=== PATIENT | female | born 1930 | race Caucasian/White ===

== ENCOUNTER 2017-06-15 16:04 | Inpatient (IN) | payer MEDICARE ==
[~2017-06-15] VITALS: Ht 160 cm; Wt 69.6 kg
[2017-06-15 16:22] VITALS: BP 158/98; PULSE 79; RESP 18; TEMP 98; O2SAT 96
[2017-06-15 20:20] VITALS: RESP 16; O2SAT 98
[2017-06-15 20:27] VITALS: BP 169/72; PULSE 80; RESP 18; O2SAT 99
--- NOTE | 2017-06-15 20:51 | PD ---
HPI Chief Complaint: Medical Clearance Time Seen by Provider: 20:45 Travel History International Travel<30 days: No Contact w/Intl Traveler<30days: No Traveled to known affect area: No History of Present Illness HPI The patient is an 87-year-old female who presents to the emergency department for "yeast infection". The patient is in the room with her sister and granddaughter who provided collateral information. They report that the patient has not been taking care of appropriately by the patient's brother. They report that the patient has not been bathed or taken care of for an unknown amount of time. The patient was brought to the emergency department by EMS from a hotel room, unknown bystanders called EMS. The granddaughter reports that the yeast infection has been there for at least 6 months and has not had any treatment. They also report that her psoriasis has had no treatment. The patient has not been to a physician for years. The patient also complains of chronic psoriasis on her lower back and scalp. They report that the patient is homeless and has nowhere to go upon discharge. The patient is oriented. The patient denies any other complaints, dysuria, hematuria, fevers, problems breathing, chest pain. Modifying Factors: None Associated Signs & Symptoms: Yeast infection, homeless, social issues Risk Factors: Elderly PFSH Past Medical History Arthritis: Yes Asthma: No Autoimmune Disease: No Heart Rhythm Problems: No High Cholesterol: Yes Chest Pain: Yes COPD: No Cerebrovascular Accident: Yes Diabetes: Yes Patient Takes Glucophage: No Diminished Hearing: No GERD: Yes Glaucoma: No Headaches: No Hepatitis: No Hiatal Hernia: No Hypertension: Yes Kidney Stones: No Immunizations Current: Yes Myocardial Infarction: No Renal Failure: No Seizures: No Sleep Apnea: No Thyroid Disease: No Ulcer: No Past Surgical History Abdominal Surgery: Yes AICD: No Cholecystectomy: Yes Gynecologic Surgery: Yes Hysterectomy: Yes Pacemaker: No Social History Alcohol Use: No Tobacco Use: Yes (2 PPD) Substance Use: No Allergies-Medications (Allergen,Severity, Reaction): Coded Allergies: No Known Allergies (Verified Allergy, Severe, 06/15/17) Reported Meds & Prescriptions Reported Meds & Active Scripts Active No Active Prescriptions or Reported Medications Review of Systems Except as stated in HPI: all other systems reviewed are Neg General / Constitutional: No: Fever, Chills HENT: No: Headaches Cardiovascular: No: Chest Pain or Discomfort Respiratory: No: Cough, Shortness of Breath Gastrointestinal: No: Nausea, Vomiting Genitourinary: No: Urgency, Hematuria Skin: Positive Rash, Positive Itching, Positive Dryness Neurologic: No: Weakness Physical Exam Narrative GENERAL: A thin and frail elderly woman in no acute respiratory distress. Awake , alert. SKIN: Warm and dry. Dry flaky skin noted on her scalp, lower back, and upper buttocks. HEAD: Normocephalic. EYES: No scleral icterus. No injection or drainage. NECK: Supple, trachea midline. No JVD or lymphadenopathy. CARDIOVASCULAR: Regular rate and rhythm without murmurs, gallops, or rubs. RESPIRATORY: Breath sounds equal bilaterally. No accessory muscle use. GASTROINTESTINAL: Abdomen soft, non-tender, nondistended. GENITOURINARY: Normal external genitalia with scaling and erythema of the genital area and the area around her diapers. Vaginal vault without blood but notable for whitish greenish drainage. EXTREMITIES: No cyanosis, or edema. NEUROLOGICAL: Awake, alert, and oriented x 3. Non-focal. Data Data Last Documented VS Vital Signs Date Time Temp Pulse Resp B/P (MAP) Pulse Ox O2 Delivery O2 Flow Rate FiO2 06/15/17 20:27 80 18 169/72 (104) 99 06/15/17 16:22 98.0 Orders Orders Complete Blood Count With Diff (06/15/17 20:57) Comprehensive Metabolic Panel (06/15/17 20:57) Urinalysis - C+S If Indicated (06/15/17 20:57) Ecg Monitoring (06/15/17 20:57) Iv Access Insert/Monitor (06/15/17 20:57) Oximetry (06/15/17 20:57) Sodium Chloride 0.9% Flush (Ns Flush) (06/15/17 21:00) Wet Prep Profile (06/15/17 20:57) Gc And Chlamydia Pcr (06/15/17 22:06) Urine Culture (06/15/17 21:35) Lactic Acid Sepsis Protocol (06/15/17 22:19) Blood Culture (06/15/17 22:19) Piperacil-Tazo 4.5 Gm Premix (Zosyn 4.5 (06/15/17 22:19) Sodium Chlor 0.9% 1000 Ml Inj (Ns 1000 M (06/15/17 22:19) Admit Order (Ed Use Only) (06/15/17 22:49) Labs Laboratory Tests Test 06/15/17 21:29 06/15/17 21:35 06/15/17 22:39 White Blood Count 11.2 TH/MM3 Red Blood Count 4.00 MIL/MM3 Hemoglobin 12.6 GM/DL Hematocrit 37.0 % Mean Corpuscular Volume 92.4 FL Mean Corpuscular Hemoglobin 31.5 PG Mean Corpuscular Hemoglobin Concent 34.0 % Red Cell Distribution Width 16.2 % Platelet Count 239 TH/MM3 Mean Platelet Volume 8.9 FL Neutrophils (%) (Auto) 80.9 % Lymphocytes (%) (Auto) 15.2 % Monocytes (%) (Auto) 3.2 % Eosinophils (%) (Auto) 0.3 % Basophils (%) (Auto) 0.4 % Neutrophils # (Auto) 9.1 TH/MM3 Lymphocytes # (Auto) 1.7 TH/MM3 Monocytes # (Auto) 0.4 TH/MM3 Eosinophils # (Auto) 0.0 TH/MM3 Basophils # (Auto) 0.0 TH/MM3 CBC Comment DIFF FINAL Differential Comment Blood Urea Nitrogen 17 MG/DL Creatinine 0.88 MG/DL Random Glucose 132 MG/DL Total Protein 6.9 GM/DL Albumin 3.0 GM/DL Calcium Level 8.4 MG/DL Alkaline Phosphatase 90 U/L Aspartate Amino Transf (AST/SGOT) 7 U/L Alanine Aminotransferase (ALT/SGPT) 9 U/L Total Bilirubin 0.4 MG/DL Sodium Level 138 MEQ/L Potassium Level 3.3 MEQ/L Chloride Level 101 MEQ/L Carbon Dioxide Level 30.6 MEQ/L Anion Gap 6 MEQ/L Estimat Glomerular Filtration Rate 61 ML/MIN Urine Color YELLOW Urine Turbidity HAZY Urine pH 5.5 Urine Specific [place] 1.029 Urine Protein 30 mg/dL Urine Glucose (UA) TRACE mg/dL Urine Ketones NEG mg/dL Urine Occult Blood NEG Urine Nitrite NEG Urine Bilirubin SMALL Urine Urobilinogen 2.0 MG/DL Urine Leukocyte Esterase LARGE Urine WBC 66 /hpf Urine Squamous Epithelial Cells 12 /hpf Urine Hyaline Casts 9 /lpf Urine Mucus FEW /lpf Microscopic Urinalysis Comment CULTURE INDICATED MDM Medical Decision Making Medical Screen Exam Complete: Yes Emergency Medical Condition: Yes Medical Record Reviewed: Yes Interpretation(s) Laboratory Tests Test 06/15/17 21:29 06/15/17 21:35 06/15/17 22:39 White Blood Count 11.2 TH/MM3 (4.0-11.0) Neutrophils (%) (Auto) 80.9 % (16.0-70.0) Neutrophils # (Auto) 9.1 TH/MM3 (1.8-7.7) Random Glucose 132 MG/DL (74-106) Albumin 3.0 GM/DL (3.4-5.0) Calcium Level 8.4 MG/DL (8.5-10.1) Aspartate Amino Transf (AST/SGOT) 7 U/L (15-37) Alanine Aminotransferase (ALT/SGPT) 9 U/L (10-53) Potassium Level 3.3 MEQ/L (3.5-5.1) Estimat Glomerular Filtration Rate 61 ML/MIN (>89) Urine Turbidity HAZY (CLEAR) Urine Protein 30 mg/dL (NEG-TRACE) Urine Bilirubin SMALL (NEG) Urine Leukocyte Esterase LARGE (NEG) Urine WBC 66 /hpf (0-5) Urine Mucus FEW /lpf (OCC) Differential Diagnosis UTI versus sepsis versus dehydration versus metabolic issues Narrative Course Patient exam shows significant skin rash on the diaper area, concerning for fungal infection. UA is significant for UTI. At this point, IV antibiotics were given. She was changed into a dry diaper. Lab work did not show significant metabolic issues or dehydration. She has no focal neurological deficits at this time which are new. My plan would be to admit her for further treatment and for social work to evaluate her regarding living situation as well. Case is discussed with Dr. Viveros for admission. Diagnosis Primary Impression: UTI (urinary tract infection) Additional Impressions: Rash of genital area Social problem Admitting Information Admitting Physician Requests: Admit Scripts No Active Prescriptions or Reported Meds Jose Jacome MD Jun 15, 2017 20:51
[2017-06-15] MEDS ORDERED: SODIUM CHLORIDE 0.9% FLUSH 10 ML FLUSH IVF PRN (21:00)
[2017-06-15 21:55] LABS: AUTOMATED NEUTROPHIL # 9.1 TH/MM3 (1.8-7.7); BASOPHIL % 0.4 % (0.0-2.0); EOSINOPHIL % 0.3 % (0.0-4.0); HEMOGLOBIN 12.6 GM/DL (11.6-15.3); LYMPH % 15.2 % (9.0-44.0); LYMPHOCYTE # 1.7 TH/MM3 (1.0-4.8); MEAN CELL VOLUME 92.4 FL (80.0-100.0); MEAN CORPUSCULAR HEMOGLOBIN 31.5 PG (27.0-34.0); MEAN PLATELET VOLUME 8.9 FL (7.0-11.0); MONO % 3.2 % (0.0-8.0); MONOCYTE # 0.4 TH/MM3 (0-0.9); NEUT % 80.9 % (16.0-70.0); PLATELET COUNT 239 TH/MM3 (150-450); RED CELL DISTRIBUTION WIDTH 16.2 % (11.6-17.2); WHITE BLOOD COUNT 11.2 TH/MM3 (4.0-11.0)
[2017-06-15 22:05] LABS: AST (GOT) 7 U/L (15-37); BICARBONATE 30.6 MEQ/L (21.0-32.0); BLOOD UREA NITROGEN 17 MG/DL (7-18); CALCIUM 8.4 MG/DL (8.5-10.1); CHLORIDE 101 MEQ/L (98-107); CREATININE 0.88 MG/DL (0.50-1.00); GLOMERULAR FILTRATION RATE 61 ML/MIN (>89); GLUCOSE,RANDOM 132 MG/DL (74-106); SODIUM (NA) 138 MEQ/L (136-145)
[2017-06-15 22:08] LABS: ALKALINE PHOSPHATASE 90 U/L (45-117); ALT (GPT) 9 U/L (10-53); TOTAL BILIRUBIN ADULT 0.4 MG/DL (0.2-1.0); TOTAL PROTEIN 6.9 GM/DL (6.4-8.2)
[2017-06-15 22:11] LABS: BILIRUBIN, URINE SMALL (NEG); BLOOD, URINE NEG (NEG); GLUCOSE,URINE TRACE mg/dL (NEG); HYALINE CAST, URINE 9 /lpf (RARE); KETONE, URINE NEG (NEG); MUCUS URINE FEW /lpf (OCC); NITRITE,URINE NEG (NEG); PH, URINE 5.5 (5.0-8.5); SQUAMOUS EPITHELIAL CELL URINE 12 /hpf (0-5); URINE COLOR YELLOW (YELLW/STRAW); URINE LEUKOCYTE ESTERASE LARGE (NEG)
[2017-06-15] MEDS ORDERED: SODIUM CHLOR 0.9% 1000 ML INJ 1,000 ML IV ONE (22:19)
[2017-06-15] MEDS ORDERED: PIPERACIL-TAZO 4.5 GM PREMIX 100 ML IV STA (22:19)
--- NOTE | 2017-06-15 22:56 | HHI.HP ---
HPI Service [facility] Primary Care Physician Unknown Admission Diagnosis UTI/social issues/groin fungal infection Diagnoses: (1) UTI (urinary tract infection) Diagnosis: Principal (2) Fungal infection of the groin Diagnosis: Principal (3) Dehydration Diagnosis: Principal (4) Total self-care deficit Diagnosis: Principal Travel History International Travel<30 Days: No Contact w/Intl Traveler <30 Da: No Traveled to Known Affected Are: No History of Present Illness This is an 87-year-old female with a PMH of HTN, Hyperlipidemia and Tobacco Abuse who is brought the ER by EMS secondary to groin rash. Pt poor historian, unable to provide much history. Per report, EMS found pt living w/ friend in a nearby hotel, previously living w/ Son, however apparently Son abandoned her and has been living w/ friend, however now unable to live there any longer and is homeless. Pt unable to care for self. On arrival, BP 158/98, HR 79, O2 sat 96% on RA, Afebrile. WBC 11.2. Chemistry essentially unremarkable except for GFR 61. Lactic Acid normal at 1.2. UA positive for UTI. S/p Zosyn in ER. Review of Systems Except as stated in HPI: all other systems reviewed are Neg ROS: 14 point review of systems otherwise negative. Past Family Social History Past Medical History PMH: HTN, Hyperlipidemia and Tobacco Abuse Past Surgical History PAST SURGICAL HISTORY: Cholecystectomy, Hysterectomy Allergies: Coded Allergies: No Known Allergies (Verified Allergy, Severe, 06/15/17) Family History PAST FAMILY HISTORY: Reviewed. No h/o DM or CAD Social History PAST SOCIAL HISTORY: Negative for alcohol or drugs. Positive for tobacco. Physical Exam Vital Signs Vital Signs Date Time Temp Pulse Resp B/P (MAP) Pulse Ox O2 Delivery O2 Flow Rate FiO2 06/15/17 20:27 80 18 169/72 (104) 99 06/15/17 20:20 16 98 Room Air 06/15/17 16:22 98.0 79 18 158/98 (118) 96 Physical Exam PE: GENERAL: Pleasant elderly white female in no acute distress, mildly confused, concerned about her cat. HEENT: PERRLA, EOMI. No scleral icterus or conjunctival pallor. No lid lag or facial droop. CARDIOVASCULAR: Regular rate and rhythm. No obvious murmurs to auscultation. No chest tenderness to palpation. RESPIRATORY: No obvious rhonchi or wheezing. Clear to auscultation. Breath sounds equal bilaterally. GASTROINTESTINAL: Abdomen soft, non-tender, nondistended. BS normal. MUSCULOSKELETAL: Extremities without clubbing, cyanosis, or edema. No obvious deformities. Groin w/ area of excoriation bilaterally NEUROLOGICAL: Awake, alert and oriented x4. No focal neurologic deficits. Moving both upper and lower extremities spontaneously. Laboratory Laboratory Tests Test 06/15/17 21:29 06/15/17 21:35 06/15/17 22:39 White Blood Count 11.2 Red Blood Count 4.00 Hemoglobin 12.6 Hematocrit 37.0 Mean Corpuscular Volume 92.4 Mean Corpuscular Hemoglobin 31.5 Mean Corpuscular Hemoglobin Concent 34.0 Red Cell Distribution Width 16.2 Platelet Count 239 Mean Platelet Volume 8.9 Neutrophils (%) (Auto) 80.9 Lymphocytes (%) (Auto) 15.2 Monocytes (%) (Auto) 3.2 Eosinophils (%) (Auto) 0.3 Basophils (%) (Auto) 0.4 Neutrophils # (Auto) 9.1 Lymphocytes # (Auto) 1.7 Monocytes # (Auto) 0.4 Eosinophils # (Auto) 0.0 Basophils # (Auto) 0.0 CBC Comment DIFF FINAL Differential Comment Blood Urea Nitrogen 17 Creatinine 0.88 Random Glucose 132 Total Protein 6.9 Albumin 3.0 Calcium Level 8.4 Alkaline Phosphatase 90 Aspartate Amino Transf (AST/SGOT) 7 Alanine Aminotransferase (ALT/SGPT) 9 Total Bilirubin 0.4 Sodium Level 138 Potassium Level 3.3 Chloride Level 101 Carbon Dioxide Level 30.6 Anion Gap 6 Estimat Glomerular Filtration Rate 61 Urine Color YELLOW Urine Turbidity HAZY Urine pH 5.5 Urine Specific [place] 1.029 Urine Protein 30 Urine Glucose (UA) TRACE Urine Ketones NEG Urine Occult Blood NEG Urine Nitrite NEG Urine Bilirubin SMALL Urine Urobilinogen 2.0 Urine Leukocyte Esterase LARGE Urine WBC 66 Urine Squamous Epithelial Cells 12 Urine Hyaline Casts 9 Urine Mucus FEW Microscopic Urinalysis Comment CULTURE INDICATED Date/Time Source Procedure Growth Status 06/15/17 21:35 Urine Clean Catch Urine Culture Pending Received Result Diagram: 06/15/17212806/15/172128 Caprini VTE Risk Assessment Caprini VTE Risk Assessment: No/Low Risk (score <= 1) Caprini Risk Assessment Model Point Value = 1 Point Value = 2 Point Value = 3 Point Value = 5 Age 41-60 Minor surgery BMI > 25 kg/m2 Swollen legs Varicose veins or History of unexplained or recurrent spontaneous Oral contraceptives or hormone replacement Sepsis (< 1 month) Serious lung disease, including pneumonia (< 1 month) Abnormal pulmonary function Acute myocardial infarction Congestive heart failure (< 1 month) History of inflammatory bowel disease Medical patient at bed rest Age 61-74 Arthroscopic surgery Major open surgery (> 45 min) Laparoscopic surgery (> 45 min) Malignancy Confined to bed (> 72 hours) Immobilizing plaster cast Central venous access Age >= 75 History of VTE Family history of VTE Factor V Leiden Prothrombin [id number] Lupus anticoagulant Anticardiolipin antibodies Elevated serum homocysteine Heparin-induced thrombocytopenia Other congenital or acquired thrombophilia Stroke (< 1 month) Elective arthroplasty Hip, pelvis, or leg fracture Acute spinal cord injury (< 1 month) Prophylaxis Regimen Total Risk Factor Score Risk Level Prophylaxis Regimen 0-1 Low Early ambulation 2 Moderate Order ONE of the following: *Sequential Compression Device (SCD) *Heparin 5000 units SQ BID 3-4 Higher Order ONE of the following medications: *Heparin 5000 units SQ TID *Enoxaparin/Lovenox 40 mg SQ daily (WT < 150 kg, CrCl > 30 mL/min) *Enoxaparin/Lovenox 30 mg SQ daily (WT < 150 kg, CrCl > 10-29 mL/min) *Enoxaparin/Lovenox 30 mg SQ BID (WT < 150 kg, CrCl > 30 mL/min) AND/OR *Sequential Compression Device (SCD) 5 or more Highest Order ONE of the following medications: *Heparin 5000 units SQ TID (Preferred with Epidurals) *Enoxaparin/Lovenox 40 mg SQ daily (WT < 150 kg, CrCl > 30 mL/min) *Enoxaparin/Lovenox 30 mg SQ daily (WT < 150 kg, CrCl > 10-29 mL/min) *Enoxaparin/Lovenox 30 mg SQ BID (WT < 150 kg, CrCl > 30 mL/min) AND *Sequential Compression Device (SCD) Assessment and Plan Problem List: (1) Fungal infection of the groin ICD Code: B35.6 - Tinea cruris (2) UTI (urinary tract infection) ICD Code: N39.0 - Urinary tract infection, site not specified Status: Acute (3) Dehydration ICD Code: E86.0 - Dehydration (4) Total self-care deficit ICD Code: R41.89 - Other symptoms and signs involving cognitive functions and awareness Assessment and Plan A/P: 1. UTI: U/a w/ UTI, s/p Zosyn in ER. Follow up cultures, continue w/ Rocephin IV, IVF for hydration. 2. Dehydration: Likely secondary to UTI, GFR 61. IVF for hydration, repeat labs in am. 3. Fungal Infection Groin: area of excoriation bilaterally, Nystatin cream, Wound Consult for further evaluation as needed. 4. Total Self Care Deficit: pt abandoned by Son per report, living w/ friend however now homeless. Unable to care for self. Consult Case Management for assistance w/ placement. PT for eval/tx 5. DVT Prophylaxis: SCD/teds. 6. Social work for DC planning as needed. 7. Case discussed at length with ER physician, lab/records/imaging reviewed by me. Ave Ventura MD Jun 15, 2017 22:56
[2017-06-15 23:00] VITALS: BP 162/72; PULSE 78; RESP 18; O2SAT 98
[2017-06-15] MEDS ORDERED: ACETAMINOPHEN 325 MG TAB PO PRN (23:00)
[2017-06-15] MEDS ORDERED: MAGNESIUM HYDROXIDE SUSP 30 ML CUP PO PRN (23:00)
[2017-06-15] MEDS ORDERED: ONDANSETRON HCL 4 MG/2 ML VIAL IVP PRN (23:00)
[2017-06-15] MEDS ORDERED: LACTULOSE SYRUP 20 GM/30 ML CUP PO PRN (23:00)
[2017-06-15] MEDS ORDERED: SODIUM CHLORIDE 0.9% FLUSH 10 ML FLUSH IV FLUSH PRN (23:00)
[2017-06-15] MEDS ORDERED: BISACODYL 10 MG SUPP RECTAL PRN (23:00)
[2017-06-15] MEDS ORDERED: SENNOSIDES 8.6 MG TAB PO PRN (23:00)
[2017-06-16] MEDS: NYSTATIN 100,000 UNIT/GM CREAM 15 GM TOPICAL SCH ×4 (00:52→18:00)
[2017-06-16] MEDS: SODIUM CHLOR 0.9% 1000 ML INJ 1,000 ML IV SCH ×3 (00:54→17:20)
[2017-06-16] MEDS ORDERED: ZOLPIDEM TARTRATE 5 MG TAB PO ONE ×2 (01:00→23:30)
[2017-06-16 03:18] VITALS: BP 100/49; PULSE 75; RESP 18; TEMP 99.1; O2SAT 97
[2017-06-16 07:07] LABS: AUTOMATED NEUTROPHIL # 7.4 TH/MM3 (1.8-7.7); BASOPHIL # 0.1 TH/MM3 (0-0.2); BASOPHIL % 0.5 % (0.0-2.0); EOSINOPHIL # 0.1 TH/MM3 (0-0.4); EOSINOPHIL % 1.1 % (0.0-4.0); HEMATOCRIT 34.9 % (35.0-46.0); LYMPH % 20.4 % (9.0-44.0); LYMPHOCYTE # 2.1 TH/MM3 (1.0-4.8); MEAN CELL VOLUME 93.3 FL (80.0-100.0); MEAN CORPUSCULAR HEMOGLOBIN 32.1 PG (27.0-34.0); MEAN CORPUSCULAR HGB CONC 34.4 % (32.0-36.0); MEAN PLATELET VOLUME 8.1 FL (7.0-11.0); MONO % 4.8 % (0.0-8.0); MONOCYTE # 0.5 TH/MM3 (0-0.9); NEUT % 73.2 % (16.0-70.0); PLATELET COUNT 228 TH/MM3 (150-450); RED BLOOD COUNT 3.74 MIL/MM3 (4.00-5.30); RED CELL DISTRIBUTION WIDTH 16.1 % (11.6-17.2); WHITE BLOOD COUNT 10.2 TH/MM3 (4.0-11.0)
[2017-06-16 07:46] LABS: ALBUMIN 2.4 GM/DL (3.4-5.0); ALKALINE PHOSPHATASE 83 U/L (45-117); ALT (GPT) 8 U/L (10-53); AST (GOT) 11 U/L (15-37); BICARBONATE 26.1 MEQ/L (21.0-32.0); BLOOD UREA NITROGEN 12 MG/DL (7-18); CALCIUM 7.8 MG/DL (8.5-10.1); CHLORIDE 105 MEQ/L (98-107); CREATININE 0.71 MG/DL (0.50-1.00); GLOMERULAR FILTRATION RATE 78 ML/MIN (>89); GLUCOSE,RANDOM 83 MG/DL (74-106); SODIUM (NA) 139 MEQ/L (136-145); TOTAL BILIRUBIN ADULT 0.6 MG/DL (0.2-1.0); TOTAL PROTEIN 5.9 GM/DL (6.4-8.2)
[2017-06-16 08:53] VITALS: BP 128/61; PULSE 67; RESP 16; TEMP 98.4; O2SAT 96
[2017-06-16] MEDS: SODIUM CHLORIDE 0.9% FLUSH 10 ML FLUSH IV FLUSH SCH ×2 (09:00→21:00)
[2017-06-16] MEDS ORDERED: DOCUSATE SODIUM 50 MG/SENNA 8.6 MG TAB PO SCH (09:00)
[2017-06-16] MEDS: cefTRIAXone INJ 1,000 MG in SODIUM CHLORIDE 0.9% INJ 100 ML IV SCH (10:21)
[2017-06-16 11:30] VITALS: BP 125/63; PULSE 70; RESP 16; TEMP 97.8; O2SAT 97
--- NOTE | 2017-06-16 12:52 | HHI.PR ---
Subjective Remarks Follow-up UTI. Patient denies UTI symptoms. States she has Crohn's disease and usually has 3-4 loose nonbloody and nonmucoid stools per day. She also has psoriasis involving her scalp and back. No joint pains. Discussed with nursing Objective Vitals Vital Signs Date Time Temp Pulse Resp B/P (MAP) Pulse Ox O2 Delivery O2 Flow Rate FiO2 06/16/17 11:30 97.8 70 16 125/63 (83) 97 06/16/17 08:53 98.4 67 16 128/61 (83) 96 06/16/17 03:18 99.1 75 18 100/49 (66) 97 06/15/17 23:45 06/15/17 23:00 78 18 162/72 (102) 98 Room Air 06/15/17 20:27 80 18 169/72 (104) 99 06/15/17 20:20 16 98 Room Air 06/15/17 16:22 98.0 79 18 158/98 (118) 96 I/O 06/15/17 06/15/17 06/15/17 06/16/17 06/16/17 06/16/17 06:59 14:59 22:59 06:59 14:59 22:59 Intake Total 100 ml Balance 100 ml Intake IV Total 100 ml Result Diagram: 06/16/1762906/16/17629 Objective Remarks GENERAL: Pleasant elderly white female in no acute distress, well-developed and well-nourished Skin: Psoriatic plaques in the back HEENT: PERRLA, EOMI. No scleral icterus or conjunctival pallor. No lid lag or facial droop. CARDIOVASCULAR: Regular rate and rhythm. No obvious murmurs to auscultation. No chest tenderness to palpation. RESPIRATORY: No obvious rhonchi or wheezing. Clear to auscultation. Breath sounds equal bilaterally. GASTROINTESTINAL: Abdomen soft, non-tender, nondistended. BS normal. MUSCULOSKELETAL: Extremities without clubbing, cyanosis, or edema. No obvious deformities. Groin w/ area of excoriation bilaterally NEUROLOGICAL: Awake, alert and oriented x4. No focal neurologic deficits. Moving both upper and lower extremities spontaneously. Procedures none A/P Problem List: (1) Fungal infection of the groin ICD Code: B35.6 - Tinea cruris (2) UTI (urinary tract infection) ICD Code: N39.0 - Urinary tract infection, site not specified Status: Acute (3) Dehydration ICD Code: E86.0 - Dehydration (4) Total self-care deficit ICD Code: R41.89 - Other symptoms and signs involving cognitive functions and awareness Assessment and Plan 1. Gram-negative marbin UTI: U/a w/ UTI, s/p Zosyn in ER. Follow up cultures, continue w/ Rocephin IV, IVF for hydration. 2. Dehydration: Likely secondary to UTI, GFR 61. IVF for hydration, repeat labs in am. 3. Fungal Infection Groin: area of excoriation bilaterally, Nystatin cream, Wound Consult for further evaluation as needed. 4. Crohn's and psoriasis. Continue to monitor for dehydration. Lac-Hydrin. 5. Total Self Care Deficit: pt abandoned by Son per report, living w/ friend however now homeless. Unable to care for self. Consult Case Management for assistance w/ placement. PT for eval/tx DVT prophylaxis with SCD and subcu heparin Discharge Planning Will need placement Waylon Beavers MD Jun 16, 2017 12:52
[2017-06-16 16:22] VITALS: BP 150/67; PULSE 84; RESP 18; TEMP 97.8; O2SAT 98
[2017-06-16] MEDS: LACTIC ACID (AMMONIUM LACTATE) 12% LOTION 225 GM BTL TOPICAL SCH (17:20)
[2017-06-16] MEDS ORDERED: POTASSIUM CHLORIDE 10 MEQ CONTROLLED RELEASE TAB PO ONE (17:30)
[2017-06-16 20:37] VITALS: BP 151/67; PULSE 85; RESP 18; TEMP 98.5; O2SAT 97
[2017-06-17] VITALS (11 sets, daily range): BP systolic 105–199; BP diastolic 58–83; PULSE 70–84; RESP 18–20; TEMP 97.9–98.5; O2SAT 96–98
[2017-06-17] MEDS: HEPARIN SODIUM - SQ 10,000 UNITS/ML VIAL SQ SCH ×3 (00:05→20:37)
[2017-06-17] MEDS: LACTIC ACID (AMMONIUM LACTATE) 12% LOTION 225 GM BTL TOPICAL SCH ×3 (00:05→20:39)
[2017-06-17] MEDS: NYSTATIN 100,000 UNIT/GM CREAM 15 GM TOPICAL SCH ×5 (00:05→22:48)
--- NOTE | 2017-06-17 07:09 | HHI.PR ---
Subjective Remarks Follow-up UTI. Patient has no new complaints. Discussed with PT, patient recommended to be discharged to rehab Objective Vitals Vital Signs Date Time Temp Pulse Resp B/P (MAP) Pulse Ox O2 Delivery O2 Flow Rate FiO2 06/17/17 05:41 98.5 79 18 136/60 (85) 97 06/17/17 03:38 140/70 (93) 06/17/17 03:19 83 18 123/58 (79) 98 06/17/17 03:17 82 18 105/59 (74) 98 06/17/17 01:19 98.0 77 18 180/79 (112) 98 06/16/17 20:37 98.5 85 18 151/67 (95) 97 06/16/17 16:22 97.8 84 18 150/67 (94) 98 06/16/17 11:30 97.8 70 16 125/63 (83) 97 06/16/17 08:53 98.4 67 16 128/61 (83) 96 I/O 06/16/17 06/16/17 06/16/17 06/17/17 06/17/17 06/17/17 07:00 15:00 23:00 07:00 15:00 23:00 Intake Total 100 ml 900 ml 1500 ml Balance 100 ml 900 ml 1500 ml Intake Oral 500 ml 500 ml IV Total 100 ml 400 ml 1000 ml # Voids 5 2 # Bowel Movements 3 Result Diagram: 06/16/1762906/16/1730 Objective Remarks GENERAL: Pleasant elderly white female in no acute distress, well-developed and well-nourished Skin: Psoriatic plaques in the back CARDIOVASCULAR: Regular rate and rhythm. No obvious murmurs to auscultation. No chest tenderness to palpation. RESPIRATORY: No obvious rhonchi or wheezing. Clear to auscultation. Breath sounds equal bilaterally. GASTROINTESTINAL: Abdomen soft, non-tender, nondistended. BS normal. MUSCULOSKELETAL: Extremities without clubbing, cyanosis, or edema. No obvious deformities. Groin w/ area of excoriation bilaterally NEUROLOGICAL: Awake, alert and oriented x4. No focal neurologic deficits. Moving both upper and lower extremities spontaneously. Procedures none A/P Problem List: (1) Fungal infection of the groin ICD Code: B35.6 - Tinea cruris (2) UTI (urinary tract infection) ICD Code: N39.0 - Urinary tract infection, site not specified Status: Acute (3) Dehydration ICD Code: E86.0 - Dehydration (4) Total self-care deficit ICD Code: R41.89 - Other symptoms and signs involving cognitive functions and awareness Assessment and Plan 1. E. coli UTI. Switch to Ceftin for a total of 3 day treatment. Blood cultures negative 2. Dehydration: Likely secondary to UTI, GFR 61. IVF for hydration, improved 3. Fungal Infection Groin: area of excoriation bilaterally, Nystatin cream, Wound Consult for further evaluation as needed. 4. Encephalopathy likely metabolic. Improved 5. Crohn's and psoriasis. Continue to monitor for dehydration. Lac-Hydrin. 6. Total Self Care Deficit: pt abandoned by Son per report, living w/ friend however now homeless. Unable to care for self. Consult Case Management for assistance w/ placement. PT ff DVT prophylaxis with SCD and subcu heparin Discharge Planning Discharge to rehab when arranged. Admitted on June 16, 2017 Waylon Beavers MD Jun 17, 2017 07:09
[2017-06-17 07:55] LABS: BICARBONATE 27.2 MEQ/L (21.0-32.0); CALCIUM 7.8 MG/DL (8.5-10.1); CREATININE 0.68 MG/DL (0.50-1.00); MAGNESIUM 1.6 MG/DL (1.5-2.5)
[2017-06-17] MEDS: cefTRIAXone INJ 1,000 MG in SODIUM CHLORIDE 0.9% INJ 100 ML IV SCH (11:39)
[2017-06-17] MEDS: SODIUM CHLORIDE 0.9% FLUSH 10 ML FLUSH IV FLUSH SCH ×2 (11:41→20:37)
[2017-06-17] MEDS: ACETAMINOPHEN/HYDROcodone 325 MG/10 MG TAB PO PRN (20:36)
[2017-06-17] MEDS ORDERED: ENALAPRILAT 2.5 MG/2 ML VIAL IV PUSH ONE (22:15)
[2017-06-17] MEDS ORDERED: ZOLPIDEM TARTRATE 5 MG TAB PO ONE (22:15)
[2017-06-18] VITALS (8 sets, daily range): BP systolic 146–187; BP diastolic 62–77; PULSE 72–82; RESP 16–18; TEMP 97.5–98.8; O2SAT 96–99
[2017-06-18] MEDS: NYSTATIN 100,000 UNIT/GM CREAM 15 GM TOPICAL SCH ×4 (05:32→21:23)
[2017-06-18] MEDS: SODIUM CHLORIDE 0.9% FLUSH 10 ML FLUSH IV FLUSH SCH ×2 (08:45→21:23)
[2017-06-18] MEDS: CEFUROXIME AXETIL 250 MG TAB PO SCH ×2 (08:45→23:45)
[2017-06-18] MEDS: HEPARIN SODIUM - SQ 10,000 UNITS/ML VIAL SQ SCH ×2 (08:45→21:20)
[2017-06-18] MEDS: LACTIC ACID (AMMONIUM LACTATE) 12% LOTION 225 GM BTL TOPICAL SCH ×2 (08:46→21:23)
--- NOTE | 2017-06-18 09:36 | HHI.PR ---
Subjective Remarks Patient in nad. She is in the chair. Denies any fever or chills. Follow with urination. Nausea vomiting diarrhea constipation. She is asking for sleeping. She is not able to sleep at night Objective Vitals Vital Signs Date Time Temp Pulse Resp B/P (MAP) Pulse Ox O2 Delivery O2 Flow Rate FiO2 06/18/17 05:32 157/62 (93) 06/18/17 04:09 98.8 74 18 99 06/18/17 00:29 98.8 72 18 98 06/18/17 00:17 152/62 (92) 06/17/17 22:23 154/70 (98) 06/17/17 20:13 97.9 84 18 199/83 (121) 96 06/17/17 15:40 97.9 80 18 128/62 (84) 96 06/17/17 12:07 98.2 70 20 130/62 (84) 98 I/O 06/17/17 06/17/17 06/17/17 06/18/17 06/18/17 06/18/17 07:00 15:00 23:00 07:00 15:00 23:00 Intake Total 1500 ml 800 ml Balance 1500 ml 800 ml Intake Oral 500 ml 800 ml IV Total 1000 ml # Voids 2 3 # Bowel Movements 1 Result Diagram: 06/16/17 0630 06/17/17 0510 Objective Remarks GENERAL: Pleasant elderly white female in no acute distress, well-developed and well-nourished Skin: Psoriatic plaques in the back CARDIOVASCULAR: Regular rate and rhythm. No obvious murmurs to auscultation. No chest tenderness to palpation. RESPIRATORY: No obvious rhonchi or wheezing. Clear to auscultation. Breath sounds equal bilaterally. GASTROINTESTINAL: Abdomen soft, non-tender, nondistended. BS normal. MUSCULOSKELETAL: Extremities without clubbing, cyanosis, or edema. No obvious deformities. Groin w/ area of excoriation bilaterally NEUROLOGICAL: Awake, alert and oriented x4. No focal neurologic deficits. Moving both upper and lower extremities spontaneously. Procedures none A/P Problem List: (1) Fungal infection of the groin ICD Code: B35.6 - Tinea cruris (2) UTI (urinary tract infection) ICD Code: N39.0 - Urinary tract infection, site not specified Status: Acute (3) Dehydration ICD Code: E86.0 - Dehydration (4) Total self-care deficit ICD Code: R41.89 - Other symptoms and signs involving cognitive functions and awareness Assessment and Plan 1. E. coli UTI. Switch to Ceftin for a total of 3 day treatment. Blood cultures negative 2. Dehydration: Likely secondary to UTI, GFR 61. IVF for hydration, improved 3. Fungal Infection Groin: area of excoriation bilaterally, Nystatin cream, Wound Consult for further evaluation as needed. 4. Encephalopathy likely metabolic. Improved 5. Crohn's and psoriasis. Continue to monitor for dehydration. Lac-Hydrin. 6. Total Self Care Deficit: pt abandoned by Son per report, living w/ friend however now homeless. Unable to care for self. Consult Case Management for assistance w/ placement. PT ff DVT prophylaxis with SCD and subcu heparin Discharge Planning Discharge to rehab when arranged. Admitted on June 16, 2017 [facility] is also involved Melissa Bailey MD Jun 18, 2017 09:36
--- NOTE | 2017-06-18 09:36 | HHI.DS ---
Discharge Summary Admission Date Jun 15, 2017 at 22:51 Discharge Date: Jun 18, 2017 Admitting Diagnosis UTI/social issues/groin fungal infection (1) Fungal infection of the groin ICD Code: B35.6 - Tinea cruris (2) UTI (urinary tract infection) ICD Code: N39.0 - Urinary tract infection, site not specified Status: Acute (3) Dehydration ICD Code: E86.0 - Dehydration (4) Total self-care deficit ICD Code: R41.89 - Other symptoms and signs involving cognitive functions and awareness Procedures none Brief History - From Admission This is an 87-year-old female with a PMH of HTN, Hyperlipidemia and Tobacco Abuse who is brought the ER by EMS secondary to groin rash. Pt poor historian, unable to provide much history. Per report, EMS found pt living w/ friend in a nearby hotel, previously living w/ Son, however apparently Son abandoned her and has been living w/ friend, however now unable to live there any longer and is homeless. Pt unable to care for self. On arrival, BP 158/98, HR 79, O2 sat 96% on RA, Afebrile. WBC 11.2. Chemistry essentially unremarkable except for GFR 61. Lactic Acid normal at 1.2. UA positive for UTI. S/p Zosyn in ER. CBC/BMP: 06/16/17 0630 06/17/17 0510 Significant Findings Laboratory Tests Test 06/15/17 21:29 06/15/17 21:35 06/15/17 22:39 06/15/17 22:55 White Blood Count 11.2 TH/MM3 (4.0-11.0) Neutrophils (%) (Auto) 80.9 % (16.0-70.0) Neutrophils # (Auto) 9.1 TH/MM3 (1.8-7.7) Random Glucose 132 MG/DL (74-106) Albumin 3.0 GM/DL (3.4-5.0) Calcium Level 8.4 MG/DL (8.5-10.1) Aspartate Amino Transf (AST/SGOT) 7 U/L (15-37) Alanine Aminotransferase (ALT/SGPT) 9 U/L (10-53) Potassium Level 3.3 MEQ/L (3.5-5.1) Estimat Glomerular Filtration Rate 61 ML/MIN (>89) Urine Turbidity HAZY (CLEAR) Urine Protein 30 mg/dL (NEG-TRACE) Urine Bilirubin SMALL (NEG) Urine Leukocyte Esterase LARGE (NEG) Urine WBC 66 /hpf (0-5) Urine Mucus FEW /lpf (OCC) Test 06/16/17 06:30 06/17/17 05:10 Red Blood Count 3.74 MIL/MM3 (4.00-5.30) Hematocrit 34.9 % (35.0-46.0) Neutrophils (%) (Auto) 73.2 % (16.0-70.0) Total Protein 5.9 GM/DL (6.4-8.2) Albumin 2.4 GM/DL (3.4-5.0) Calcium Level 7.8 MG/DL (8.5-10.1) 7.8 MG/DL (8.5-10.1) Aspartate Amino Transf (AST/SGOT) 11 U/L (15-37) Alanine Aminotransferase (ALT/SGPT) 8 U/L (10-53) Potassium Level 3.0 MEQ/L (3.5-5.1) Estimat Glomerular Filtration Rate 78 ML/MIN (>89) 82 ML/MIN (>89) Random Glucose 176 MG/DL (74-106) PE at Discharge GENERAL: Pleasant elderly white female in no acute distress, well-developed and well-nourished Skin: Psoriatic plaques in the back CARDIOVASCULAR: Regular rate and rhythm. No obvious murmurs to auscultation. No chest tenderness to palpation. RESPIRATORY: No obvious rhonchi or wheezing. Clear to auscultation. Breath sounds equal bilaterally. GASTROINTESTINAL: Abdomen soft, non-tender, nondistended. BS normal. MUSCULOSKELETAL: Extremities without clubbing, cyanosis, or edema. No obvious deformities. Groin w/ area of excoriation bilaterally NEUROLOGICAL: Awake, alert and oriented x4. No focal neurologic deficits. Moving both upper and lower extremities spontaneously. Hospital Course 1. E. coli UTI. Switch to Ceftin for a total of 3 day treatment. Blood cultures negative 2. Dehydration: Likely secondary to UTI, GFR 61. IVF for hydration, improved 3. Fungal Infection Groin: area of excoriation bilaterally, Nystatin cream, Wound Consult for further evaluation as needed. 4. Encephalopathy likely metabolic. Improved 5. Crohn's and psoriasis. Continue to monitor for dehydration. Lac-Hydrin. 6. Total Self Care Deficit: pt abandoned by Son per report, living w/ friend however now homeless. Unable to care for self. Consult Case Management for assistance w/ placement. PT ff DVT prophylaxis with SCD and subcu heparin Discharge Planning Discharge to rehab when arranged. Admitted on June 16, 2017 DSF is also involved Melissa Bailey MD Jun 18, 2017 09:36
[2017-06-18] MEDS ORDERED: NYST15T TOPICAL (09:37)
[2017-06-18] MEDS ORDERED: CEFU1TAB18 PO (09:37)
--- NOTE | 2017-06-18 09:37 | HHI.DCPOC ---
Discharge Care Plan Diagnosis: (1) Total self-care deficit (2) UTI (urinary tract infection) (3) Fungal infection of the groin Goals to Promote Your Health * To prevent worsening of your condition and complications * To maintain your health at the optimal level Directions to Meet Your Goals Take your medications as prescribed Follow your dietary instruction Follow activity as directed Keep your appointments as scheduled Take your immunizations and boosters as scheduled If your symptoms worsen call your PCP, if no PCP go to Urgent Care Center or Emergency Room Smoking is Dangerous to Your Health. Avoid second hand smoke Call the 24-hour hour crisis hotline for domestic abuse at Nazanin Benedict PA-C Jun 18, 2017 9:37 am
[2017-06-18] MEDS ORDERED: ENALAPRILAT 1.25 MG/ML VIAL IV PUSH PRN (12:30)
[2017-06-18] MEDS: TEMAZEPAM 15 MG CAP PO PRN (21:21)
[2017-06-19] VITALS (7 sets, daily range): BP systolic 115–189; BP diastolic 57–84; PULSE 63–88; RESP 16–18; TEMP 97.8–98.8; O2SAT 93–98
[2017-06-19] MEDS: NYSTATIN 100,000 UNIT/GM CREAM 15 GM TOPICAL SCH ×4 (05:35→21:13)
[2017-06-19] MEDS: LACTIC ACID (AMMONIUM LACTATE) 12% LOTION 225 GM BTL TOPICAL SCH ×2 (09:43→21:13)
[2017-06-19] MEDS: HEPARIN SODIUM - SQ 10,000 UNITS/ML VIAL SQ SCH ×2 (09:44→21:13)
--- NOTE | 2017-06-19 12:00 | HHI.PR ---
Subjective Remarks Did sleep better. No n/v/d/c. No fever ro chills./ No events overnight Objective Vitals Vital Signs Date Time Temp Pulse Resp B/P (MAP) Pulse Ox O2 Delivery O2 Flow Rate FiO2 06/19/17 07:31 98.0 64 16 127/60 (82) 97 06/19/17 05:02 98.0 71 18 120/57 (78) 97 06/19/17 00:47 98.8 88 18 189/82 (117) 97 06/19/17 00:00 98.4 84 18 165/84 (111) 93 06/18/17 15:36 98.0 78 16 167/71 (103) 98 06/18/17 12:20 171/68 (102) I/O 06/18/17 06/18/17 06/18/17 06/19/17 06/19/17 06/19/17 07:00 15:00 23:00 07:00 15:00 23:00 Intake Total 950 ml Output Total 650 ml 400 ml Balance 300 ml -400 ml Intake Oral 950 ml Output Urine Total 650 ml 400 ml # Voids 3 Result Diagram: 06/16/17 0630 06/17/17 0510 Objective Remarks GENERAL: Pleasant elderly white female in no acute distress, well-developed and well-nourished Skin: Psoriatic plaques in the back CARDIOVASCULAR: Regular rate and rhythm. No obvious murmurs to auscultation. No chest tenderness to palpation. RESPIRATORY: No obvious rhonchi or wheezing. Clear to auscultation. Breath sounds equal bilaterally. GASTROINTESTINAL: Abdomen soft, non-tender, nondistended. BS normal. MUSCULOSKELETAL: Extremities without clubbing, cyanosis, or edema. No obvious deformities. Groin w/ area of excoriation bilaterally NEUROLOGICAL: Awake, alert and oriented x4. No focal neurologic deficits. Moving both upper and lower extremities spontaneously. Procedures none A/P Problem List: (1) Fungal infection of the groin ICD Code: B35.6 - Tinea cruris (2) UTI (urinary tract infection) ICD Code: N39.0 - Urinary tract infection, site not specified Status: Acute (3) Dehydration ICD Code: E86.0 - Dehydration (4) Total self-care deficit ICD Code: R41.89 - Other symptoms and signs involving cognitive functions and awareness Assessment and Plan 1. E. coli UTI. Switch to Ceftin for a total of 3 day treatment. Blood cultures negative 2. Dehydration: Likely secondary to UTI, GFR 61. IVF for hydration, improved 3. Fungal Infection Groin: area of excoriation bilaterally, Nystatin cream, Wound Consult for further evaluation as needed. 4. Encephalopathy likely metabolic. Improved 5. Crohn's and psoriasis. Continue to monitor for dehydration. Lac-Hydrin. 6. Total Self Care Deficit: pt abandoned by Son per report, living w/ friend however now homeless. Unable to care for self. Consult Case Management for assistance w/ placement. PT ff DVT prophylaxis with SCD and subcu heparin Discharge Planning Discharge to rehab when arranged. Admitted on June 16, 2017 DSF is also involved Melissa Bailey MD Jun 19, 2017 12:00
[2017-06-19] MEDS: SODIUM CHLORIDE 0.9% FLUSH 10 ML FLUSH IV FLUSH SCH ×2 (17:25→21:00)
[2017-06-19] MEDS: TEMAZEPAM 15 MG CAP PO PRN (21:13)
[2017-06-20 00:13] VITALS: BP 124/64; PULSE 76; RESP 18; TEMP 97.9; O2SAT 98
[2017-06-20 03:38] VITALS: BP 139/69; PULSE 68; RESP 18; TEMP 97.8; O2SAT 95
[2017-06-20] MEDS: NYSTATIN 100,000 UNIT/GM CREAM 15 GM TOPICAL SCH ×3 (05:16→18:41)
[2017-06-20 08:20] VITALS: BP 167/67; PULSE 74; RESP 16; TEMP 98.3; O2SAT 95
--- NOTE | 2017-06-20 08:37 | HHI.PR ---
Subjective Remarks Pleasant, does not appear in no acute distress. No events overnight. No complaints at this time Objective Vitals Vital Signs Date Time Temp Pulse Resp B/P (MAP) Pulse Ox O2 Delivery O2 Flow Rate FiO2 06/20/17 03:38 97.8 68 18 139/69 (92) 95 06/20/17 00:13 97.9 76 18 124/64 (84) 98 06/19/17 19:32 98.2 78 18 136/83 (100) 97 06/19/17 14:56 97.8 78 16 115/57 (76) 98 06/19/17 13:15 98.3 63 16 125/59 (81) 95 I/O 06/19/17 06/19/17 06/19/17 06/20/17 06/20/17 06/20/17 07:00 15:00 23:00 07:00 15:00 23:00 Intake Total 250 ml 200 ml Output Total 400 ml 200 ml Balance -400 ml 50 ml 200 ml Intake Oral 250 ml 200 ml Output Urine Total 400 ml 200 ml # Voids 3 Result Diagram: 06/16/17 0630 06/17/17 0510 Objective Remarks GENERAL: Pleasant elderly white female in no acute distress, well-developed and well-nourished Skin: Psoriatic plaques in the back CARDIOVASCULAR: Regular rate and rhythm. No obvious murmurs to auscultation. No chest tenderness to palpation. RESPIRATORY: No obvious rhonchi or wheezing. Clear to auscultation. Breath sounds equal bilaterally. GASTROINTESTINAL: Abdomen soft, non-tender, nondistended. BS normal. MUSCULOSKELETAL: Extremities without clubbing, cyanosis, or edema. No obvious deformities. Groin w/ area of excoriation bilaterally NEUROLOGICAL: Awake, alert and oriented x4. No focal neurologic deficits. Moving both upper and lower extremities spontaneously. Procedures none A/P Problem List: (1) Fungal infection of the groin ICD Code: B35.6 - Tinea cruris (2) UTI (urinary tract infection) ICD Code: N39.0 - Urinary tract infection, site not specified Status: Acute (3) Dehydration ICD Code: E86.0 - Dehydration (4) Total self-care deficit ICD Code: R41.89 - Other symptoms and signs involving cognitive functions and awareness Assessment and Plan 1. E. coli UTI. Switch to Ceftin for a total of 3 day treatment. Blood cultures negative 2. Dehydration: Likely secondary to UTI, GFR 61. IVF for hydration, improved 3. Fungal Infection Groin: area of excoriation bilaterally, Nystatin cream, Wound Consult for further evaluation as needed. 4. Encephalopathy likely metabolic. Improved 5. Crohn's and psoriasis. Continue to monitor for dehydration. Lac-Hydrin. 6. Total Self Care Deficit: pt abandoned by Son per report, living w/ friend however now homeless. Unable to care for self. Consult Case Management for assistance w/ placement. PT ff DVT prophylaxis with SCD and subcu heparin Discharge Planning Discharge to rehab when arranged. Admitted on June 16, 2017 DSF is also involved CM ff Melissa Segovia MD Jun 20, 2017 08:37
[2017-06-20] MEDS: SODIUM CHLORIDE 0.9% FLUSH 10 ML FLUSH IV FLUSH SCH ×2 (09:54→21:06)
[2017-06-20] MEDS: HEPARIN SODIUM - SQ 10,000 UNITS/ML VIAL SQ SCH ×2 (09:54→21:06)
[2017-06-20] MEDS: LACTIC ACID (AMMONIUM LACTATE) 12% LOTION 225 GM BTL TOPICAL SCH ×2 (09:54→21:06)
[2017-06-20 12:23] VITALS: BP 142/70; PULSE 70; RESP 16; TEMP 97.3; O2SAT 96
[2017-06-20 16:20] VITALS: BP 137/63; PULSE 73; RESP 16; TEMP 98.3; O2SAT 98
[2017-06-20 20:43] VITALS: BP 140/63; PULSE 71; RESP 18; TEMP 97.9; O2SAT 97
[2017-06-20] MEDS: TEMAZEPAM 15 MG CAP PO PRN (21:05)
[2017-06-21 00:22] VITALS: BP 140/63; PULSE 70; RESP 18; TEMP 97.9; O2SAT 96
[2017-06-21] MEDS: NYSTATIN 100,000 UNIT/GM CREAM 15 GM TOPICAL SCH ×5 (00:25→23:19)
[2017-06-21] MEDS: SODIUM CHLORIDE 0.9% FLUSH 10 ML FLUSH IV FLUSH SCH ×2 (08:18→21:41)
[2017-06-21] MEDS: LACTIC ACID (AMMONIUM LACTATE) 12% LOTION 225 GM BTL TOPICAL SCH ×2 (08:19→21:41)
[2017-06-21] MEDS: HEPARIN SODIUM - SQ 10,000 UNITS/ML VIAL SQ SCH ×2 (08:19→21:43)
[2017-06-21 08:36] VITALS: BP 138/63; PULSE 70; RESP 20; TEMP 97.7; O2SAT 95
[2017-06-21 11:27] VITALS: BP 142/65; PULSE 75; RESP 12; TEMP 98; O2SAT 94
[2017-06-21 15:03] VITALS: BP 116/54; PULSE 70; RESP 16; TEMP 98.3; O2SAT 97
--- NOTE | 2017-06-21 16:21 | HHI.PR ---
Subjective Remarks The patient is in bed she appears in not acute distress. Since sleeping medication was not helping last night and she was not able to sleep. No chest pain or shortness of breath. No nausea vomiting diarrhea or constipation. Objective Vitals Vital Signs Date Time Temp Pulse Resp B/P (MAP) Pulse Ox O2 Delivery O2 Flow Rate FiO2 06/21/17 15:03 98.3 70 16 116/54 (74) 97 06/21/17 11:27 98.0 75 12 142/65 (90) 94 06/21/17 08:36 97.7 70 20 138/63 (88) 95 06/21/17 00:22 97.9 70 18 140/63 (88) 96 06/20/17 20:43 97.9 71 18 140/63 (88) 97 06/20/17 16:20 98.3 73 16 137/63 (87) 98 I/O 06/20/17 06/20/17 06/20/17 06/21/17 06/21/17 06/21/17 07:00 15:00 23:00 07:00 15:00 23:00 Intake Total 200 ml 480 ml Balance 200 ml 480 ml Intake Oral 200 ml 480 ml # Voids 2 # Bowel Movements 1 Result Diagram: 06/17/17 0510 Objective Remarks GENERAL: Pleasant elderly white female in no acute distress, well-developed and well-nourished Skin: Psoriatic plaques in the back CARDIOVASCULAR: Regular rate and rhythm. No obvious murmurs to auscultation. No chest tenderness to palpation. RESPIRATORY: No obvious rhonchi or wheezing. Clear to auscultation. Breath sounds equal bilaterally. GASTROINTESTINAL: Abdomen soft, non-tender, nondistended. BS normal. MUSCULOSKELETAL: Extremities without clubbing, cyanosis, or edema. No obvious deformities. Groin w/ area of excoriation bilaterally NEUROLOGICAL: Awake, alert and oriented x4. No focal neurologic deficits. Moving both upper and lower extremities spontaneously. Procedures none A/P Problem List: (1) Fungal infection of the groin ICD Code: B35.6 - Tinea cruris (2) UTI (urinary tract infection) ICD Code: N39.0 - Urinary tract infection, site not specified Status: Acute (3) Dehydration ICD Code: E86.0 - Dehydration (4) Total self-care deficit ICD Code: R41.89 - Other symptoms and signs involving cognitive functions and awareness Assessment and Plan 06/21/17 1. E. coli UTI. Switch to Ceftin for a total of 3 day treatment. Treated. Blood cultures negative 2. Dehydration: Likely secondary to UTI, GFR 61. IVF for hydration, improved 3. Fungal Infection Groin: area of excoriation bilaterally, Nystatin cream, Wound Consult for further evaluation as needed. 4. Encephalopathy likely metabolic. Improved 5. Crohn's and psoriasis. Continue to monitor for dehydration. Lac-Hydrin. 6. Total Self Care Deficit: pt abandoned by Son per report, living w/ friend however now homeless. Unable to care for self. Consult Case Management for assistance w/ placement. PT ff DVT prophylaxis with SCD and subcu heparin Discharge Planning Discharge to rehab when arranged. Admitted on June 16, 2017 DSF is also involved Melissa Bailey MD Jun 21, 2017 16:21
[2017-06-21 20:46] VITALS: BP 178/74; PULSE 80; RESP 18; TEMP 98.3; O2SAT 95
[2017-06-21] MEDS: TEMAZEPAM 15 MG CAP PO PRN (21:41)
[2017-06-22] MEDS: NYSTATIN 100,000 UNIT/GM CREAM 15 GM TOPICAL SCH ×3 (05:00→17:50)
[2017-06-22 08:25] VITALS: BP 141/65; PULSE 69; RESP 20; TEMP 98; O2SAT 97
[2017-06-22] MEDS: SODIUM CHLORIDE 0.9% FLUSH 10 ML FLUSH IV FLUSH SCH ×2 (08:29→21:55)
[2017-06-22] MEDS: HEPARIN SODIUM - SQ 10,000 UNITS/ML VIAL SQ SCH ×2 (08:29→21:55)
[2017-06-22] MEDS: LACTIC ACID (AMMONIUM LACTATE) 12% LOTION 225 GM BTL TOPICAL SCH ×2 (08:29→21:55)
[2017-06-22 10:50] VITALS: BP 161/67; PULSE 72; RESP 16; TEMP 98; O2SAT 97
--- NOTE | 2017-06-22 12:05 | HHI.PR ---
Subjective Remarks Follow-up visit urinary tract infection, dehydration, Crohn's and psoriasis. Patient seen and examined today sitting in a chair. Reports she is doing well. Denies any complaints. Requesting to go home or to rehab. Objective Vitals Vital Signs Date Time Temp Pulse Resp B/P (MAP) Pulse Ox O2 Delivery O2 Flow Rate FiO2 06/22/17 10:50 98.0 72 16 161/67 (98) 97 06/22/17 08:25 98.0 69 20 141/65 (90) 97 06/21/17 20:46 98.3 80 18 178/74 (108) 95 06/21/17 15:03 98.3 70 16 116/54 (74) 97 I/O 06/21/17 06/21/17 06/21/17 06/22/17 06/22/17 06/22/17 07:00 15:00 23:00 07:00 15:00 23:00 Intake Total 480 ml 720 ml Balance 480 ml 720 ml Intake Oral 480 ml 720 ml # Voids 2 2 2 # Bowel Movements 1 1 Objective Remarks GENERAL: This is a well-nourished, well-developed patient, in no apparent distress. SKIN: Warm and dry HEENT: Normocephalic. Pupils equal round and reactive. Nose without bleeding. Airway patent. NECK: Trachea midline. CARDIOVASCULAR: Regular rate and rhythm without murmurs, gallops, or rubs. RESPIRATORY: Clear to auscultation. Breath sounds equal bilaterally. No wheezes , rales, or rhonchi. GASTROINTESTINAL: Abdomen soft, non-tender, nondistended. Bowel Sounds normoactive x4. MUSCULOSKELETAL: Extremities without clubbing, cyanosis, or edema. NEUROLOGICAL: Awake and alert. Oriented to place, person. No focal neuro deficit. Moves all extremities. Normal speech. Procedures none A/P Problem List: (1) Fungal infection of the groin ICD Code: B35.6 - Tinea cruris (2) UTI (urinary tract infection) ICD Code: N39.0 - Urinary tract infection, site not specified Status: Acute (3) Dehydration ICD Code: E86.0 - Dehydration (4) Total self-care deficit ICD Code: R41.89 - Other symptoms and signs involving cognitive functions and awareness Assessment and Plan 87-year-old female with a PMH of HTN, Hyperlipidemia and Tobacco Abuse who is brought the ER by EMS secondary to groin rash. Urinary tract infection -Received Zosyn in the ED, completed Rocephin IV -Resolved Dehydration -IV fluids for hydration -Improved now eating better [place] infection to groin -Nystatin cream -Wound consult Total self-care deficit -Abandoned by son as per report, living with a friend and now homeless. Unable to care for self. -Case management involvement for assistance in placement. -PT for evaluation and treatment DVT prop SCDs, early ambulation Discharge Planning Plan to discharge to a facility when available. Parveen Braxton Jun 22, 2017 12:05
[2017-06-22 15:27] VITALS: BP 141/62; PULSE 72; RESP 16; TEMP 98; O2SAT 97
[2017-06-22 21:13] VITALS: BP 158/67; PULSE 70; RESP 18; TEMP 98.5; O2SAT 96
[2017-06-22] MEDS: ACETAMINOPHEN/HYDROcodone 325 MG/5 MG TAB PO PRN (21:55)
[2017-06-22] MEDS: TEMAZEPAM 15 MG CAP PO PRN (21:55)
[2017-06-23] VITALS (7 sets, daily range): BP systolic 124–148; BP diastolic 59–86; PULSE 61–85; RESP 17–19; TEMP 97.9–99; O2SAT 95–99
[2017-06-23] MEDS: NYSTATIN 100,000 UNIT/GM CREAM 15 GM TOPICAL SCH ×5 (00:02→22:49)
[2017-06-23] MEDS: HEPARIN SODIUM - SQ 10,000 UNITS/ML VIAL SQ SCH ×2 (09:07→22:48)
[2017-06-23] MEDS: SODIUM CHLORIDE 0.9% FLUSH 10 ML FLUSH IV FLUSH SCH ×2 (09:08→21:00)
--- NOTE | 2017-06-23 09:55 | HHI.PR ---
Subjective Remarks Follow-up visit urinary tract infection, dehydration, Crohn's and psoriasis. Patient seen and examined today. Reports she is doing well. Denies pain and discomfort. Denies SOB/ dyspnea. Denies chest pain, palpitations, headaches, dizziness. Denies fevers, chills, n/v/d. Denies hematuria, dysuria. Reports insomnia. Objective Vitals Vital Signs Date Time Temp Pulse Resp B/P (MAP) Pulse Ox O2 Delivery O2 Flow Rate FiO2 06/23/17 08:00 98.1 63 19 138/70 (92) 95 06/23/17 04:07 99.0 85 18 140/86 (104) 97 06/23/17 00:06 98.9 70 18 124/59 (80) 96 06/22/17 21:13 98.5 70 18 158/67 (97) 96 06/22/17 15:27 98.0 72 16 141/62 (88) 97 06/22/17 10:50 98.0 72 16 161/67 (98) 97 I/O 06/22/17 06/22/17 06/22/17 06/23/17 06/23/17 06/23/17 07:00 15:00 23:00 07:00 15:00 23:00 Intake Total 720 ml Balance 720 ml Intake Oral 720 ml # Voids 2 2 # Bowel Movements 1 Objective Remarks GENERAL: This is a well-nourished, well-developed patient, in no apparent distress. SKIN: Warm and dry HEENT: Normocephalic. Pupils equal round and reactive. Nose without bleeding. Airway patent. NECK: Trachea midline. CARDIOVASCULAR: Regular rate and rhythm without murmurs, gallops, or rubs. RESPIRATORY: Clear to auscultation. Breath sounds equal bilaterally. No wheezes , rales, or rhonchi. GASTROINTESTINAL: Abdomen soft, non-tender, nondistended. Bowel Sounds normoactive x4. MUSCULOSKELETAL: Extremities without clubbing, cyanosis, or edema. NEUROLOGICAL: Awake and alert. Oriented to place, person. No focal neuro deficit. Moves all extremities. Normal speech. Procedures none A/P Problem List: (1) Fungal infection of the groin ICD Code: B35.6 - Tinea cruris (2) UTI (urinary tract infection) ICD Code: N39.0 - Urinary tract infection, site not specified Status: Acute (3) Dehydration ICD Code: E86.0 - Dehydration (4) Total self-care deficit ICD Code: R41.89 - Other symptoms and signs involving cognitive functions and awareness Assessment and Plan 87-year-old female with a PMH of HTN, Hyperlipidemia and Tobacco Abuse who is brought the ER by EMS secondary to groin rash. Urinary tract infection -Received Zosyn in the ED, completed Rocephin IV -Resolved Dehydration -IV fluids for hydration -Improved now eating better [place] infection to groin -Nystatin cream -Wound consult Total self-care deficit -Abandoned by son as per report, living with a friend and now homeless. Unable to care for self. -Case management involvement for assistance in placement. -PT for evaluation and treatment Insomnia -Has been on temazepam and states it is not working. Will DC temazepam and start trazodone 50 may increase dose to 100 mg nightly. DVT prop SCDs, early ambulation Discharge Planning Plan to discharge to a facility when available. Parveen Braxton Jun 23, 2017 09:55
[2017-06-23] MEDS: LACTIC ACID (AMMONIUM LACTATE) 12% LOTION 225 GM BTL TOPICAL SCH ×2 (10:24→22:49)
[2017-06-23] MEDS: traZODone HCL 50 MG TAB PO SCH (22:48)
[2017-06-24] VITALS (7 sets, daily range): BP systolic 89–153; BP diastolic 42–76; PULSE 54–82; RESP 14–18; TEMP 97.6–98.2; O2SAT 95–98
[2017-06-24] MEDS: ACETAMINOPHEN/HYDROcodone 325 MG/5 MG TAB PO PRN ×2 (00:04→09:56)
[2017-06-24] MEDS: NYSTATIN 100,000 UNIT/GM CREAM 15 GM TOPICAL SCH ×4 (06:00→23:52)
--- NOTE | 2017-06-24 09:04 | HHI.PR ---
Subjective Remarks Follow-up visit urinary tract infection, dehydration, Crohn's and psoriasis. Patient seen and examined today. Reports she slept better with the new medication. Denies pain and discomfort. Denies SOB/ dyspnea. Denies chest pain, palpitations, headaches, dizziness. Denies fevers, chills, n/v. Denies dysuria. Objective Vitals Vital Signs Date Time Temp Pulse Resp B/P (MAP) Pulse Ox O2 Delivery O2 Flow Rate FiO2 06/24/17 08:03 97.6 56 14 89/42 (58) 98 06/24/17 04:20 98.1 54 17 112/55 (74) 95 06/24/17 00:53 18 06/24/17 00:53 18 06/23/17 23:54 97.9 70 17 136/62 (86) 97 06/23/17 20:44 97.9 73 17 148/63 (91) 99 06/23/17 16:00 98.2 61 17 147/65 (92) 98 06/23/17 12:00 98.0 62 18 140/72 (94) 95 I/O 06/23/17 06/23/17 06/23/17 06/24/17 06/24/17 06/24/17 07:00 15:00 23:00 07:00 15:00 23:00 Intake Total 1310 ml 240 ml Balance 1310 ml 240 ml Intake Oral 1310 ml 240 ml # Voids 8 3 1 # Bowel Movements 8 1 Objective Remarks GENERAL: This is a well-nourished, well-developed patient, in no apparent distress. SKIN: Warm and dry. Improving [place] bilateral groin, bilateral breast fold. HEENT: Normocephalic. Pupils equal round and reactive. Nose without bleeding. Airway patent. NECK: Trachea midline. CARDIOVASCULAR: Regular rate and rhythm without murmurs, gallops, or rubs. RESPIRATORY: Clear to auscultation. Breath sounds equal bilaterally. No wheezes , rales, or rhonchi. GASTROINTESTINAL: Abdomen soft, non-tender, nondistended. Bowel Sounds normoactive x4. MUSCULOSKELETAL: Extremities without clubbing, cyanosis, or edema. NEUROLOGICAL: Awake and alert. Oriented to place, person. No focal neuro deficit. Moves all extremities. Normal speech. Procedures none A/P Problem List: (1) Fungal infection of the groin ICD Code: B35.6 - Tinea cruris (2) UTI (urinary tract infection) ICD Code: N39.0 - Urinary tract infection, site not specified Status: Acute (3) Dehydration ICD Code: E86.0 - Dehydration (4) Total self-care deficit ICD Code: R41.89 - Other symptoms and signs involving cognitive functions and awareness Assessment and Plan 87-year-old female with a PMH of HTN, Hyperlipidemia and Tobacco Abuse who is brought the ER by EMS secondary to groin rash. Urinary tract infection -Received Zosyn in the ED, completed Rocephin IV -Resolved Dehydration -IV fluids for hydration -Improved now eating better [place] infection to groin -Nystatin cream/ powder -Improved Total self-care deficit -Abandoned by son as per report, living with a friend and now homeless. Unable to care for self. -Case management involvement for assistance in placement. -PT for evaluation and treatment Insomnia -Has been on temazepam and states it is not working. Will DC temazepam and start trazodone 50 may increase dose to 100 mg nightly. -Improved with trazodone DVT prop SCDs, early ambulation Discharge Planning Plan to discharge to a facility when available. Parveen Braxton Jun 24, 2017 09:04
[2017-06-24] MEDS: HEPARIN SODIUM - SQ 10,000 UNITS/ML VIAL SQ SCH ×2 (09:52→22:32)
[2017-06-24] MEDS: LACTIC ACID (AMMONIUM LACTATE) 12% LOTION 225 GM BTL TOPICAL SCH ×2 (09:53→22:32)
[2017-06-24] MEDS: SODIUM CHLORIDE 0.9% FLUSH 10 ML FLUSH IV FLUSH SCH ×2 (09:53→21:00)
[2017-06-24] MEDS: traZODone HCL 50 MG TAB PO SCH (22:32)
[2017-06-24] MEDS: ACETAMINOPHEN/HYDROcodone 325 MG/10 MG TAB PO PRN (22:32)
[2017-06-25] VITALS (12 sets, daily range): BP systolic 114–154; BP diastolic 55–77; PULSE 54–74; RESP 17–18; TEMP 97.7–98.8; O2SAT 94–97
[2017-06-25] MEDS: NYSTATIN 100,000 UNIT/GM CREAM 15 GM TOPICAL SCH ×2 (06:00→12:00)
[2017-06-25] MEDS: LACTIC ACID (AMMONIUM LACTATE) 12% LOTION 225 GM BTL TOPICAL SCH ×2 (09:00→20:24)
[2017-06-25] MEDS ORDERED: INFLUENZA VIRUS VACCINE (QUADRIVALENT) 0.5 ML SYR IM ONE (09:00)
[2017-06-25] MEDS ORDERED: PNEUMOCOCCAL POLYVALENT INJ 25 MCG/0.5 ML SYR IM ONE (09:00)
[2017-06-25] MEDS: HEPARIN SODIUM - SQ 10,000 UNITS/ML VIAL SQ SCH ×2 (09:54→20:25)
[2017-06-25] MEDS: SODIUM CHLORIDE 0.9% FLUSH 10 ML FLUSH IV FLUSH SCH ×2 (09:58→20:23)
--- NOTE | 2017-06-25 09:58 | HHI.PR ---
Subjective Remarks Follow-up for placement Patient has to be found a place for her to stay it. Otherwise she has no other complaints. No acute events. Objective Vitals Vital Signs Date Time Temp Pulse Resp B/P (MAP) Pulse Ox O2 Delivery O2 Flow Rate FiO2 06/25/17 08:07 97.9 59 17 121/60 (80) 94 06/25/17 04:17 98.0 59 18 114/55 (74) 94 06/25/17 04:00 58 06/25/17 00:58 74 06/25/17 00:00 98.8 69 17 115/59 (77) 94 06/24/17 21:09 97.9 70 18 153/76 (101) 98 06/24/17 20:09 98.2 82 18 118/59 (78) 95 06/24/17 16:56 97.8 63 16 129/59 (82) 98 140/62 (88) 06/24/17 12:54 110/48 (68) 06/24/17 10:00 95/52 (66) I/O 06/24/17 06/24/17 06/24/17 06/25/17 06/25/17 06/25/17 07:00 15:00 23:00 07:00 15:00 23:00 Intake Total 240 ml 300 ml 380 ml Output Total 350 ml Balance 240 ml -50 ml 380 ml Intake Oral 240 ml 300 ml 380 ml Output Urine Total 300 ml Stool Total 50 ml # Voids 3 1 4 # Bowel Movements 1 Objective Remarks GENERAL:in NAD CARDIOVASCULAR: Regular rate and rhythm without murmurs, gallops, or rubs. RESPIRATORY: Breath sounds equal bilaterally. No accessory muscle use. GASTROINTESTINAL: Abdomen soft, non-tender, nondistended. Procedures none Medications and IVs Current Medications Sodium Chloride (NS Flush) 2 ml UNSCH PRN IVF FLUSH AFTER USING IV ACCESS; Start 06/15/17 at 21:00; Stop 06/15/17 at 23:05; Status DC Piperacillin Sod/ Tazobactam Sod 100 ml @ 200 mls/hr ONCE STAT IV Last administered on 06/15/17at 22:58; Start 06/15/17 at 22:19; Stop 06/15/17 at 22:48; Status DC Sodium Chloride 1,000 ml @ 1,000 mls/hr Q1H ONCE IV ; Start 06/15/17 at 22:19; Stop 06/15/17 at 23:18; Status Cancel Ceftriaxone Sodium 1000 mg/ Sodium Chloride 100 ml @ 200 mls/hr Q24H IV Last administered on 06/17/17at 11:39; Start 06/16/17 at 09:00; Stop 06/17/17 at 13:38 ; Status DC Sodium Chloride 1,000 ml @ 50 mls/hr Q20H IV Last administered on 06/16/17at 17 :20; Start 06/15/17 at 23:00; Stop 06/17/17 at 13:38; Status DC Sodium Chloride (NS Flush) 2 ml UNSCH PRN IV FLUSH FLUSH AFTER USING IV ACCESS Last administered on 06/23/17at 22:49; Start 06/15/17 at 23:00 Sodium Chloride (NS Flush) 2 ml BID IV FLUSH Last administered on 06/24/17at 21: 00; Start 06/16/17 at 09:00 Ondansetron HCl (Zofran Inj) 4 mg Q6H PRN IVP NAUSEA OR VOMITING; Start at 23:00 Acetaminophen (Tylenol) 650 mg Q6H PRN PO FEVER/PAIN SCALE 1 TO 2 Last administered on 06/24/17at 00:05; Start 06/15/17 at 23:00 Acetaminophen/ Hydrocodone Bitart ([place] 5-325 Mg) 1 tab Q4H PRN PO PAIN SCALE 3 TO 5 Last administered on 06/24/17at 09:56; Start 06/15/17 at 23:00 Acetaminophen/ Hydrocodone Bitart ([place] 10-325 Mg) 1 tab Q4H PRN PO PAIN SCALE 6 TO 10 Last administered on 06/24/17at 22:32; Start 06/15/17 at 23:00 Senna/Docusate Sodium (Suzanne-Colace) 1 tab BID PO ; Start 06/16/17 at 09:00; Stop 06/16/17 at 16:24; Status DC Magnesium Hydroxide (Milk Of Magnesia Liq) 30 ml Q12H PRN PO Mild constipation ; Start 06/15/17 at 23:00 Sennosides (Senokot) 17.2 mg Q12H PRN PO Moderate constipation; Start 06/15/17 at 23:00 Bisacodyl (Dulcolax Supp) 10 mg DAILY PRN RECTAL SEVERE CONSITIPATION; Start at 23:00 Lactulose (Lactulose Liq) 30 ml DAILY PRN PO SEVERE CONSITIPATION; Start at 23:00 Nystatin (Mycostatin Cream) 1 applic Q6HR TOPICAL Last administered on at 06:00; Start 06/16/17 at 00:00 Zolpidem Tartrate (Ambien) 5 mg ONCE ONCE PO Last administered on 06/16/17at 01 :11; Start 06/16/17 at 01:00; Stop 06/16/17 at 01:01; Status DC Lactic Acid (Lac-Hydrin 12% Lotion) 1 applic BID TOPICAL Last administered on at 22:32; Start 06/16/17 at 11:45 Potassium Chloride (KCl) 60 meq ONCE ONCE PO Last administered on 06/16/17at 18 :50; Start 06/16/17 at 17:30; Stop 06/16/17 at 17:31; Status DC Heparin Sodium (Porcine) (Heparin Inj) 5,000 units Q12HR SQ Last administered on 06/24/17at 22:32; Start 06/16/17 at 21:00 Zolpidem Tartrate (Ambien) 5 mg ONCE ONCE PO Last administered on 06/17/17at 00 :04; Start 06/16/17 at 23:30; Stop 06/16/17 at 23:31; Status DC Cefuroxime Axetil (Ceftin) 250 mg Q12HR PO Last administered on 06/18/17at 23:45 ; Start 06/18/17 at 09:00; Stop 06/19/17 at 08:59; Status DC Zolpidem Tartrate (Ambien) 5 mg ONCE ONCE PO Last administered on 06/17/17at 22 :48; Start 06/17/17 at 22:15; Stop 06/17/17 at 22:16; Status DC Enalaprilat (Vasotec Inj) 2.5 mg ONCE ONCE IV PUSH ; Start 06/17/17 at 22:15; Stop 06/17/17 at 22:35; Status DC Temazepam (Restoril) 15 mg HS PRN PO insomnia Last administered on 06/22/17at 21 :55; Start 06/18/17 at 09:30; Stop 06/23/17 at 11:40; Status DC Enalaprilat (Vasotec Inj) 1.25 mg Q8H PRN IV PUSH SBP> OR = 180, DBP> OR = 100 Last administered on 06/19/17at 00:50; Start 06/18/17 at 12:30 Trazodone HCl (Desyrel) 50 mg HS PO Last administered on 06/24/17at 22:32; Start 06/23/17 at 21:00 Pneumococcal Polyvalent Vaccine (Pneumovax-23 Inj) 25 mcg ONCE ONCE IM ; Start 06/25/17 at 09:00; Stop 06/25/17 at 09:01; Status DC Influenza Virus Vaccine (Flu (Quadrivalent) Vaccine Inj) 0.5 ml ONCE ONCE IM ; Start 06/25/17 at 09:00; Stop 06/25/17 at 09:01; Status DC A/P Problem List: (1) Fungal infection of the groin ICD Code: B35.6 - Tinea cruris (2) UTI (urinary tract infection) ICD Code: N39.0 - Urinary tract infection, site not specified Status: Acute (3) Dehydration ICD Code: E86.0 - Dehydration (4) Total self-care deficit ICD Code: R41.89 - Other symptoms and signs involving cognitive functions and awareness Assessment and Plan 87-year-old female with a PMH of HTN, Hyperlipidemia and Tobacco Abuse who is brought the ER by EMS secondary to groin rash. Urinary tract infection -Received Zosyn in the ED, completed Rocephin IV -Resolved Dehydration -resolved. [place] infection to groin -Nystatin cream/ powder -Improved Total self-care deficit -Abandoned by son as per report, living with a friend and now homeless. Unable to care for self. -Case management involvement for assistance in placement. -PT for evaluation and treatment Insomnia -Has been on temazepam and states it is not working. Will DC temazepam and start trazodone 50 may increase dose to 100 mg nightly. -Improved with trazodone DVT prop SCDs, early ambulation Discharge Planning Patient medically clear for discharge pending placement. Ami Hemphill MD Jun 25, 2017 09:57
[2017-06-25] MEDS: ACETAMINOPHEN/HYDROcodone 325 MG/10 MG TAB PO PRN ×3 (10:27→21:23)
[2017-06-25] MEDS: traZODone HCL 50 MG TAB PO SCH (20:23)
[2017-06-26] VITALS (11 sets, daily range): BP systolic 105–141; BP diastolic 55–67; PULSE 54–72; RESP 14–20; TEMP 97.8–98.4; O2SAT 92–97
[2017-06-26] MEDS: NYSTATIN 100,000 UNIT/GM CREAM 15 GM TOPICAL SCH ×5 (00:26→23:46)
[2017-06-26] MEDS: HEPARIN SODIUM - SQ 10,000 UNITS/ML VIAL SQ SCH ×2 (09:04→21:00)
[2017-06-26] MEDS: LACTIC ACID (AMMONIUM LACTATE) 12% LOTION 225 GM BTL TOPICAL SCH ×2 (09:04→21:00)
[2017-06-26] MEDS: ACETAMINOPHEN/HYDROcodone 325 MG/10 MG TAB PO PRN (09:04)
[2017-06-26] MEDS: SODIUM CHLORIDE 0.9% FLUSH 10 ML FLUSH IV FLUSH SCH ×2 (09:04→20:59)
--- NOTE | 2017-06-26 09:27 | HHI.PR ---
Subjective Remarks awake and alert, no complains of pain, dysuria or cough or shortness of breath interactive and oriented x 3 states idffiulty swleeping at night and states she is on ambien Objective Vitals Vital Signs Date Time Temp Pulse Resp B/P (MAP) Pulse Ox O2 Delivery O2 Flow Rate FiO2 06/26/17 08:00 98.0 62 20 127/57 (80) 96 06/26/17 04:47 98.0 60 18 120/56 (77) 95 06/26/17 03:42 59 06/26/17 00:27 98.1 65 18 117/67 (84) 95 06/25/17 23:40 60 06/25/17 20:20 98.1 54 115/60 (78) 95 06/25/17 20:20 Room Air 06/25/17 19:43 61 06/25/17 16:07 97.7 63 17 154/77 (102) 97 06/25/17 16:00 62 06/25/17 12:07 97.9 57 17 121/56 (77) 97 06/25/17 11:30 20 I/O 06/25/17 06/25/17 06/25/17 06/26/17 06/26/17 06/26/17 07:00 15:00 23:00 07:00 15:00 23:00 Intake Total 380 ml 740 ml Output Total 400 ml Balance 380 ml 740 ml -400 ml Intake Oral 380 ml 740 ml Output Urine Total 400 ml # Voids 4 3 # Bowel Movements 0 Objective Remarks awake and alert,l interaftive, oritend x 3 anciteric no nuchal rigidity lungs- no rales regular rhythm abdomen soft, nontender bilateral groin- dry, no rashes, no erythema extremities no edema, good peripheral pulses moves all extremities spontaneously Procedures none A/P Problem List: (1) Fungal infection of the groin ICD Code: B35.6 - Tinea cruris (2) UTI (urinary tract infection) ICD Code: N39.0 - Urinary tract infection, site not specified Status: Acute (3) Dehydration ICD Code: E86.0 - Dehydration (4) Total self-care deficit ICD Code: R41.89 - Other symptoms and signs involving cognitive functions and awareness Assessment and Plan 87-year-old female with a PMH of HTN, Hyperlipidemia and Tobacco Abuse who is brought the ER by EMS secondary to groin rash. Urinary tract infection- Resolved -S/P Rocephin IV -Resolved Dehydration -resolved. [place] infection to groin- improved -Nystatin cream/ powder Total self-care deficit -Abandoned by son as per report, living with a friend and now homeless. Unable to care for self. -Case management involvement for assistance in placement. -PT for evaluation and treatment Insomnia -Has been on temazepam and states it is not working. was started on trazodone 50 -states this am - not sleeping well with above -states she takes Ambien - start Ambien 2.5 mg hs prn DVT prop SCDs, early ambulation Up on chair for all meals- d/w staff Discharge Planning Patient medically clear for discharge pending placement. Thomas Roa MD Jun 26, 2017 09:27
[2017-06-26] MEDS ORDERED: ZOLPIDEM TARTRATE 5 MG TAB PO PRN ×2 (09:30→21:00)
[2017-06-26] MEDS ORDERED: PILL SPLITTER OTHER PRN (10:15)
[2017-06-26] MEDS: ACETAMINOPHEN/HYDROcodone 325 MG/5 MG TAB PO PRN ×2 (13:56→20:59)
[2017-06-27] VITALS (8 sets, daily range): BP systolic 132–158; BP diastolic 62–79; PULSE 65–72; RESP 13–18; TEMP 97.6–98.3; O2SAT 94–98
[2017-06-27] MEDS: NYSTATIN 100,000 UNIT/GM CREAM 15 GM TOPICAL SCH ×2 (05:36→13:17)
[2017-06-27] MEDS: SODIUM CHLORIDE 0.9% FLUSH 10 ML FLUSH IV FLUSH SCH (08:51)
[2017-06-27] MEDS: HEPARIN SODIUM - SQ 10,000 UNITS/ML VIAL SQ SCH (08:51)
[2017-06-27] MEDS: LACTIC ACID (AMMONIUM LACTATE) 12% LOTION 225 GM BTL TOPICAL SCH (08:51)
--- NOTE | 2017-06-27 09:46 | HHI.PR ---
Subjective Remarks no complains up ambulating with a walker no urinary complaints states history of Crohn's states she slept great last night- started on ambien Objective Vitals Vital Signs Date Time Temp Pulse Resp B/P (MAP) Pulse Ox O2 Delivery O2 Flow Rate FiO2 06/27/17 04:02 72 06/27/17 04:00 98.3 69 18 145/64 (91) 96 06/27/17 00:00 98.0 72 18 132/62 (85) 98 06/26/17 23:44 72 06/26/17 20:00 Room Air 06/26/17 20:00 98.4 71 18 139/61 (87) 92 06/26/17 19:43 65 06/26/17 19:22 97.8 63 18 132/60 (84) 06/26/17 16:00 66 06/26/17 16:00 Room Air 06/26/17 15:24 97.9 63 14 141/55 (83) 97 06/26/17 12:00 98.1 54 20 105/56 (72) 95 06/26/17 12:00 54 06/26/17 12:00 Room Air I/O 06/26/17 06/26/17 06/26/17 06/27/17 06/27/17 06/27/17 07:00 15:00 23:00 07:00 15:00 23:00 Intake Total 480 ml Output Total 400 ml Balance -400 ml 480 ml Intake Oral 480 ml Output Urine Total 400 ml # Voids 4 5 # Bowel Movements 2 Objective Remarks awake and alert,l interactive, oriented x 3 anicteric no nuchal rigidity lungs- no rales regular rhythm abdomen soft, nontender bilateral groin- dry, no rashes, no erythema extremities no edema, good peripheral pulses moves all extremities spontaneously Procedures none A/P Problem List: (1) Fungal infection of the groin ICD Code: B35.6 - Tinea cruris (2) UTI (urinary tract infection) ICD Code: N39.0 - Urinary tract infection, site not specified Status: Acute (3) Dehydration ICD Code: E86.0 - Dehydration (4) Total self-care deficit ICD Code: R41.89 - Other symptoms and signs involving cognitive functions and awareness Assessment and Plan 87-year-old female with a PMH of HTN, Hyperlipidemia and Tobacco Abuse who is brought the ER by EMS secondary to groin rash. Urinary tract infection- Resolved- S/P treatment -S/P Rocephin IV -Resolved Dehydration -resolved. good po [place] infection to groin- improved -Nystatin cream/ powder Total self-care deficit -Abandoned by son as per report, living with a friend and now homeless. Unable to care for self. -Case management involvement for assistance in placement. -PT for evaluation and treatment Insomnia -Has been on temazepam and states it is not working. was started on trazodone 50 -states this am - not sleeping well with above -on Ambien 2.5 mg hs prn DVT prop SCDs, early ambulation Up on chair for all meals- d/w staff Discharge Planning Patient medically clear for discharge pending placement. Thomas Roa MD Jun 27, 2017 09:46
[2017-06-27] MEDS ORDERED: AMBI5TAB PO (15:33)
--- NOTE | 2017-06-27 15:34 | HHI.DS ---
Discharge Summary Admission Date Jun 16, 2017 at 12:22 Discharge Date: Jun 27, 2017 Admitting Diagnosis UTI/social issues/groin fungal infection (1) Fungal infection of the groin ICD Code: B35.6 - Tinea cruris Diagnosis: Principal (2) UTI (urinary tract infection) ICD Code: N39.0 - Urinary tract infection, site not specified Diagnosis: Secondary Status: Resolved (3) Dehydration ICD Code: E86.0 - Dehydration Diagnosis: Secondary Status: Resolved (4) Total self-care deficit ICD Code: R41.89 - Other symptoms and signs involving cognitive functions and awareness Diagnosis: Principal Status: Chronic Procedures none Brief History - From Admission This is an 87-year-old female with a PMH of HTN, Hyperlipidemia and Tobacco Abuse who is brought the ER by EMS secondary to groin rash. Pt poor historian, unable to provide much history. Per report, EMS found pt living w/ friend in a nearby hotel, previously living w/ Son, however apparently Son abandoned her and has been living w/ friend, however now unable to live there any longer and is homeless. Pt unable to care for self. On arrival, BP 158/98, HR 79, O2 sat 96% on RA, Afebrile. WBC 11.2. Chemistry essentially unremarkable except for GFR 61. Lactic Acid normal at 1.2. UA positive for UTI. S/p Zosyn in ER. PE at Discharge awake and alert,l interactive, oriented x 3 anicteric no nuchal rigidity lungs- no rales regular rhythm abdomen soft, nontender bilateral groin- dry, no rashes, no erythema extremities no edema, good peripheral pulses moves all extremities spontaneously Pt update on day of discharge awake and alert, interactivelooking forward to rehab Hospital Course 87-year-old female with a PMH of HTN, Hyperlipidemia and Tobacco Abuse who is brought the ER by EMS secondary to groin rash. Urinary tract infection- Resolved- S/P treatment -S/P Rocephin IV -Resolved Dehydration -resolved. good po [place] infection to groin- improved -Nystatin cream/ powder Total self-care deficit -Abandoned by son as per report, living with a friend and now homeless. Unable to care for self. -Case management involvement for assistance in placement. -PT for evaluation and treatment Insomnia -Has been on temazepam and states it is not working. was started on trazodone 50 -states this am - not sleeping well with above -on Ambien 2.5 mg hs prn DVT prop SCDs, early ambulation Up on chair for all meals- d/w staff Discharge Planning Patient medically clear for discharge pending placement. Pt Condition on Discharge: Stable Discharge Disposition: Discharge to SNF Discharge Time: <= 30 minutes Discharge Instructions DIET: Follow Instructions for: As Tolerated, No Restrictions Activities you can perform: Weight Bearing as Ele Follow up Referrals: PCP Follow-up - 1 Week New Medications: Nystatin Topical (Nystatin Topical) 100,000 unit/gm Cream 1 APPLIC TOPICAL Q6HR for Rash for 14 Days, #1 TUBE 1 Refill Zolpidem (Ambien) 5 Mg Tab 2.5 MG PO HS PRN for INSOMNIA for 5 Days, #5 TAB Thomas Roa MD Jun 27, 2017 15:34
[2017-06-27] MEDS: ACETAMINOPHEN/HYDROcodone 325 MG/5 MG TAB PO PRN (17:09)
== END 2017-06-27 17:32 | DRG 689 ==
LOC: NEPE 16:04 → NEDA 22:51 → INTOOBSV 22:51 → NEPGCP 23:49 → OBSVTOIN 06-16 12:22 → INTOOBSV 06-16 12:22 → N04A 06-24 20:55
PROVIDERS: ADMIT Internal Medicine; ATTEND Internal Medicine
DX: N39.0 Urinary tract infection, site not specified (principal); G93.41 Metabolic encephalopathy; K50.90 Crohn's disease, unspecified, without complications; E11.9 Type 2 diabetes mellitus without complications; E86.0 Dehydration; T74.01XA Adult neglect or abandonment, confirmed, initial encounter; B37.2 Candidiasis of skin and nail; I10 Essential (primary) hypertension; E78.5 Hyperlipidemia, unspecified; K21.9 Gastro-esophageal reflux disease without esophagitis; L40.0 Psoriasis vulgaris; G47.00 Insomnia, unspecified; M19.90 Unspecified osteoarthritis, unspecified site; K59.00 Constipation, unspecified; Y07.499 Other family member, perpetrator of maltreatment and neglect; B96.20 Unspecified Escherichia coli [E. coli] as the cause of diseases classified elsewhere; Z59.0 Homelessness; Z72.0 Tobacco use; Z86.73 Personal history of transient ischemic attack (TIA), and cerebral infarction without residual deficits; Z23 Encounter for immunization
CPT/HCPCS: 80048; 80053; 81001; 83605; 83735; 85025; 87040; 87077; 87086; 87186; 87210; 87491; 87591; 90686; 90732; 99285; G8987-GO; G8987-GP; G8988-GO; G8988-GP; J0696; J1644; J2543; J7030; Q2038